=== PATIENT | female | born 1990 | race Caucasian/White ===

== ENCOUNTER 2020-03-07 03:29 | Emergency (ER) | payer OTHER, SELFPAY ==
[2020-03-07 03:32] VITALS: BP 125/71; PULSE 119; RESP 16; TEMP 37.8; O2SAT 98; BMI 32.3
--- NOTE | 2020-03-07 03:38 | XR_ITS ---
EXAMINATION: XR ANKLE, RIGHT XR FOOT, RIGHT CLINICAL INFORMATION: Fall COMPARISON: None TECHNIQUE: 3 views of the right ankle. 3 views of the right foot. FINDINGS: Alignment throughout the ankle and foot is anatomic. No acute fracture is seen. There is mild soft tissue swelling anteriorly at the ankle. XR/XR ankle RT min 3V IMPRESSION: No acute osseous findings in the right ankle or foot. Anterior soft tissue swelling at the ankle.
--- NOTE | 2020-03-07 03:43 | XR_ITS ---
EXAMINATION: XR ANKLE, RIGHT XR FOOT, RIGHT CLINICAL INFORMATION: Fall COMPARISON: None TECHNIQUE: 3 views of the right ankle. 3 views of the right foot. FINDINGS: Alignment throughout the ankle and foot is anatomic. No acute fracture is seen. There is mild soft tissue swelling anteriorly at the ankle. XR/XR foot RT min 3V IMPRESSION: No acute osseous findings in the right ankle or foot. Anterior soft tissue swelling at the ankle.
--- NOTE | 2020-03-07 03:44 | ED.LOWEXIN ---
HPI - Extremity Injury (Lower) General Chief Complaint: Fall Stated Complaint: RIGHT ANKLE - FALL Time Seen by Provider: 03/07/20 03:38 Source: patient Mode of arrival: ambulatory Limitations: no limitations History of Present Illness MD complaint: ankle injury and foot injury Onset (ago): day(s) (last night before bed) Injury: Right: ankle and foot Type of Injury: inversion Place: home Severity: moderate Relieving factors: nothing Exacerbating factors: weight bearing and movement Context: fall Associated symptoms: snap/pop sensation and able to partially bear weight Other symptoms: none Related Data Allergies Allergy/AdvReac Type Severity Reaction Status Date / Time No Known Allergies Allergy Unverified 01/02/20 16:04 Review of Systems Review of Systems: Constitutional : No Fever, No Chills Cardiovascular : No Chest Pain, No SOB Respiratory : No Cough, No Dyspnea Gastrointestinal : No Nausea, No Vomiting, No Diarrhea, No abdominal Pain Genitourinary : No Dysuria, No Hematuria Musculoskeletal : positive joint pain, No Myalgias, No Joint Swelling Skin : No Skin lacerations, No rash Neuro : No Weakness, No Numbness, No Loss of Consciousness, No Dizziness, No Headache PMF Past Medical History Attestation statement: The following information was validated with the patient. Medical History (Updated 03/07/20 @ 04:46 by Ladi Rene DO) No active medical problems Social History Social History (Updated 03/07/20 @ 03:45 by Ladi Rene DO) Alcohol intake: never Smoking Status: Never smoker Advance Directives: No Physical Exam Vital Signs: Vital Signs: Last Vital Signs Temp 100.0 F 03/07/20 03:32 Pulse 119 H 03/07/20 03:32 Resp 16 03/07/20 03:32 BP 125/71 03/07/20 03:32 Pulse Ox 98 03/07/20 03:32 Body Mass Index 32.3 Appearance: Alert. Oriented X3. No acute distress. Eyes: Pupils equal, round and reactive to light. ENT: Pharynx normal. Neck: Normal inspection. Neck supple. CVS: Normal heart rate and rhythm. Pulses normal. Respiratory: No respiratory distress. Breath sounds normal. Abdomen: Soft and nontender. Skin: Skin warm and dry. Normal skin color. Normal skin turgor. Extremities: No lower extremity edema. No calf ttp R foot pain to dorsum of foot and lateral malleolus - distal NV intact, BCR in all digits, no pain to prox fibula Neuro: Oriented X 3. No motor deficit. No sensory deficit. Procedures Orthopedic Splinting/Casting Injury #1: Side: right Lower Extremity Injury Location: ankle and foot Lower Extremity Immobilizer: [employer] MDM - Extremity Injury (Lower) MDM Narrative Medical decision making narrative: 29 yo female 31 weeks presents with inversion injury to R foot ankle no other injuries reported, xray of ankle/foot and PO tylenol ordered, NV intact Discharge Plan Discharge Clinical Impression: Right foot strain Qualifiers: Encounter type: initial encounter Qualified Code(s): S96.911A - Strain of unspecified muscle and tendon at ankle and foot level, right foot, initial encounter Right ankle strain Qualifiers: Encounter type: initial encounter Qualified Code(s): S96.911A - Strain of unspecified muscle and tendon at ankle and foot level, right foot, initial encounter Patient Disposition: Home, Self-Care Instructions: Foot Sprain (ED), Ankle Strain (ED) Additional Instructions: return to ED for any worsening symptoms or concerns wear splint for 5 to 7 days, elevate, rest and ice, weight bearing as tolerated, take tylenol for pain Referrals: Florence Medina MD [Primary Care Provider] - 2 days (if not better) Stand Alone Forms: Work/School Release
[2020-03-07] MEDS: Acetaminophen 325 MG TABLET 650 MG PO (03:49)
== END 2020-03-07 05:32 | disposition home or self-care (01) ==
PROVIDERS: Emergency Provider Emergency Medicine; PCP Internal Medicine
DX: O26.93 Pregnancy related conditions, unspecified, third trimester (principal); S96.911A Strain of unspecified muscle and tendon at ankle and foot level, right foot, initial encounter; M25.571 Pain in right ankle and joints of right foot; X50.1XXA Overexertion from prolonged static or awkward postures, initial encounter; Y93.9 Activity, unspecified; Y92.009 Unspecified place in unspecified non-institutional (private) residence as the place of occurrence of the external cause; Y99.9 Unspecified external cause status; Z3A.31 31 weeks gestation of pregnancy
CPT/HCPCS: 29515; 73610; 73630; 99283